=== PATIENT | female | born 1990 | race Caucasian/White ===

== ENCOUNTER 2018-02-28 12:59 | Inpatient (IN) | payer MEDICARE, MEDICAID ==
--- NOTE | 2018-02-28 13:37 | ED ---
Psych HPI - General Chief Complaint: Psychiatric Symptoms Stated Complaint: mental health Time Seen by Provider: 02/28/18 13:10 Source: patient, RN notes reviewed Mode of arrival: ambulatory Limitations: no limitations - History of Present Illness Initial Comments: This a 27-year-old female presents emergency Department chief complaint of depression, suicidal ideation. Patient states that she's had building depression last 3 days. She's had thoughts of overdosing but states that she has not attempted to harm himself. She states that she does have history of drug abuse she claims she has been clean for last 3 months. Patient states she has not use any alcohol and Reglan basis in a while. Patient denies any physical complaints. Patient states she does take multiple medications for depression states that has not been helping child tried telling this to her psychiatrist. - Related Data Allergies Allergy/AdvReac Type Severity Reaction Status Date / Time aspirin Allergy Rash/Hives Verified 02/28/18 13:05 clarithromycin [From Biaxin] Allergy Rash/Hives Verified 02/28/18 13:05 Review of Systems ROS Statement: Those systems with pertinent positive or pertinent negative responses have been documented in the HPI. ROS Other: All systems not noted in ROS Statement are negative. Past Medical History Past Medical History: COPD, Diabetes Mellitus History of Any Multi-Drug Resistant Organisms: None Reported Past Surgical History: No Surgical Hx Reported Past Psychological History: Anxiety, Bipolar, Depression, Schizophrenia Smoking Status: Current every day smoker Past Alcohol Use History: Occasional Past Drug Use History: Marijuana, Prescription Drug Abuse General Exam Limitations: no limitations General appearance: alert, in no apparent distress Head exam: Present: atraumatic, normocephalic, normal inspection Eye exam: Present: normal appearance, PERRL, EOMI. Absent: scleral icterus, conjunctival injection, periorbital swelling ENT exam: Present: normal exam, mucous membranes moist Neck exam: Present: normal inspection, full ROM. Absent: tenderness, meningismus, lymphadenopathy Respiratory exam: Present: normal lung sounds bilaterally. Absent: respiratory distress, wheezes, rales, rhonchi, stridor Cardiovascular Exam: Present: regular rate, normal rhythm, normal heart sounds. Absent: systolic murmur, diastolic murmur, rubs, gallop, clicks GI/Abdominal exam: Present: soft, normal bowel sounds. Absent: distended, tenderness, guarding, rebound, rigid Psychiatric exam: Present: depressed Skin exam: Present: warm, dry, intact, normal color. Absent: rash Course Vital Signs 02/28/18 13:01 Temperature 99.0 F Pulse Rate 85 Respiratory 18 Rate Blood Pressure 150/74 O2 Sat by Pulse 98 Oximetry Medical Decision Making - Lab Data Lab Results 02/28/18 Range/Units 13:24 Urine Opiates Screen Not Detected (NotDetected) Ur Oxycodone Screen Not Detected (NotDetected) Urine Methadone Screen Not Detected (NotDetected) Ur Propoxyphene Screen Not Detected (NotDetected) Ur Barbiturates Screen Not Detected (NotDetected) U Tricyclic Antidepress Detected H (NotDetected) Ur Phencyclidine Scrn Not Detected (NotDetected) Ur Amphetamines Screen Not Detected (NotDetected) U Methamphetamines Scrn Not Detected (NotDetected) U Benzodiazepines Scrn Not Detected (NotDetected) Urine Cocaine Screen Not Detected (NotDetected) U Marijuana (THC) Screen Not Detected (NotDetected) Disposition Clinical Impression: Depression, Suicidal ideation Disposition: ADMITTED IP TO THIS [facility] Condition: Stable Referrals: Dyllan Avalos DO [Primary Care Provider] - 1-2 days
[2018-02-28 13:50] LABS: Amphetamine Screen,Urine Not Detected (NotDetected); Barbiturate Screen,Urine Not Detected (NotDetected); Benzodiazepines Screen,Urine Not Detected (NotDetected); Cocaine Screen,Urine Not Detected (NotDetected); Methadone Screen, Urine Not Detected (NotDetected); Opiate Screen,Urine Not Detected (NotDetected); Oxycodone Screen, Urine Not Detected (NotDetected); Phencyclidine Screen,Urine Not Detected (NotDetected); Tricyclic Antidepressant,Urine Detected (NotDetected); Urn Cannabinoid Scrn Not Detected (NotDetected)
[2018-02-28] MEDS ORDERED: ACETAMINOPHEN TAB 325 MG TAB PO PRN (15:53)
[2018-02-28] MEDS ORDERED: MAGNESIUM HYDROXIDE 2,400 MG/10 ML CUP PO PRN (15:53)
[2018-02-28] MEDS: NICOTINE 14MG/24HR PATCH TRANSDERM SCH (16:13)
[2018-02-28 17:49] LABS: Glucose,Whole Blood 99 mg/dL (75-99)
[2018-02-28] MEDS: metFORMIN 500 MG TAB PO SCH (18:08)
[2018-02-28 20:12] LABS: Glucose,Whole Blood 210 mg/dL (75-99)
[2018-02-28 20:53] VITALS: BMI 47.0
[2018-02-28] MEDS ORDERED: LURASIDONE 80 MG TAB PO SCH (21:00)
[2018-02-28] MEDS: LORazepam 1 MG TAB PO PRN (21:37)
[2018-03-01 06:30] LABS: Glucose,Whole Blood 93 mg/dL (75-99)
[2018-03-01] MEDS ORDERED: ALBUTEROL NEBULIZED 2.5 MG/3 ML INHALATION PRN (06:49)
[2018-03-01] MEDS ORDERED: CALCIUM CARBONATE 500 MG CHEWABLE PO PRN (06:49)
--- NOTE | 2018-03-01 06:52 | P.HPMEDMHU ---
History of Present Illness H&P Date: 03/01/18 Chief Complaint: Suicidal ideation Ms. Marshall is a 27-year-old female with a past medical history of diabetes, dyslipidemia, GERD, and asthma with component of COPD who presented to the ER with complaint of suicidal ideation. She has subsequently been admitted to the mental health unit. We have been asked to consult for medical management. Patient seen and examined at bedside with nursing present. She complains that she was vomiting for 2 days after eating some fried zucchini. This is since resolved. She is not having any abdominal pain or discomfort at this point in time. She is not having any diarrhea or constipation. She reports increasing anxiety and depression recently. She does have a history of diabetes. She checks her blood sugar at home sometimes. She takes metformin 750 mg daily. She does not believe this is the XL. She is unsure when her last hemoglobin A1c was but knows that her triglycerides were high. She denies any recent cough , cold, fever, flu, shortness of breath, or chest pain. She states her wheezes chronic and her this point in time her asthma is well-controlled. She does have some insomnia which is near baseline. Review of Systems Pertinent positives and negatives as discussed in HPI, a complete review of systems was performed and all other systems are negative. Past Medical History Past Medical History: COPD, Diabetes Mellitus Additional Past Medical History / Comment(s): Dyslipidemia, GERD History of Any Multi-Drug Resistant Organisms: None Reported Past Surgical History: No Surgical Hx Reported Past Psychological History: Anxiety, Bipolar, Depression, Schizophrenia Smoking Status: Current every day smoker Past Alcohol Use History: Occasional Past Drug Use History: Marijuana, Prescription Drug Abuse Additional Drug Use History / Comment(s): History of illicit drug use, no history of injectable drug use, not using currently. Additional History: Lives with her fianc, on disability - Past Family History Mother Additional Family Medical History / Comment(s): Hypertension, hypothyroidism, heart disease Father Additional Family Medical History / Comment(s): Diabetes, history of open-heart 2, coronary artery disease Medications and Allergies Home Medications Medication Instructions Recorded Confirmed Type Escitalopram [Lexapro] 20 mg PO DAILY 02/28/18 03/01/18 History LORazepam [Ativan] 1 mg PO BID 02/28/18 03/01/18 History Lurasidone HCl [Latuda] 120 mg PO HS 02/28/18 03/01/18 History Pantoprazole Sodium [Protonix] 20 mg PO DAILY 02/28/18 03/01/18 History QUEtiapine [SEROquel] 400 mg PO HS 02/28/18 03/01/18 History metFORMIN HCL [Glucophage Xr] 750 mg PO PC-SUPPER 02/28/18 03/01/18 History Allergies Allergy/AdvReac Type Severity Reaction Status Date / Time aspirin Allergy Rash/Hives Verified 03/01/18 05:28 clarithromycin [From Biaxin] Allergy Rash/Hives Verified 03/01/18 05:28 Physical Exam Osteopathic Statement: *. No significant issues noted on an osteopathic structural exam other than those noted in the History and Physical/Consult. Vitals: Vital Signs Temp Pulse Pulse Pulse Resp BP BP 03/01/18 04:04 97.7 F 88 16 140/69 02/28/18 21:37 99 135/82 02/28/18 20:37 98.2 F 96 20 02/28/18 14:54 98.3 F 89 18 148/80 02/28/18 13:01 99.0 F 85 18 150/74 BP Pulse Ox 03/01/18 04:04 02/28/18 21:37 02/28/18 20:37 137/88 96 02/28/18 14:54 99 02/28/18 13:01 98 Intake and Output 02/28/18 02/28/18 03/01/18 14:59 22:59 06:59 Other: Weight 122.924 kg 124.2 kg General: non toxic, no distress, appears at stated age, B6 Derm: no unusual rashes/lesions no unusual ecchymoses, warm, dry, multiple tattoos over bilateral arms Head: atraumatic, normocephalic, symmetric Eyes: EOMI, no lid lag, anicteric sclera, pupils equal round reactive to light ENT: Nose and ears atraumatic, no thrush, no pharyngeal erythema Neck: No thyromegaly, no cervical lymphadenopathy, trachea midline, supple Mouth: no lip lesion, mucus membranes moist Cardiovascular: S1S2 reg, no murmur, positive posterior tibial pulse bilateral, no edema, capillary refill less than 2 seconds Lungs: Expiratory wheeze bilateral bases, no rhonchi, no rales , no accessory muscle use Abdominal: soft, nontender to palpation, no guarding, no appreciable organomegaly, normal bowel sounds Ext: no gross muscle atrophy, muscle strength 5 out of 5 in all 4 extremities grossly, no contractures, Neuro: CN II-XI grossly intact, light touch intact all 4 extremities, finger to nose within normal limits, Psych: Alert, oriented, appropriate affect Cranial Nerve Examination - Cranial Nerves Cranial Nerve II- Optic: Intact Cranial Nerve III- Oculomotor: Intact Cranial Nerve IV- Trochlear: Intact Cranial Nerve V- Trigeminal: Intact Cranial Nerve - Abducens: Intact Cranial Nerve VII- Facial: Intact Cranial Nerve VIII- Auditory: Intact Cranial Nerve IX- Glossopharyngeal: Intact Cranial Nerve X- Vagus: Intact Cranial Nerve XI- Accessory: Intact Cranial Nerve XII- Hypoglossal: Intact Results Labs: Abnormal Lab Results - Last 24 Hours (Table) 02/28/18 02/28/18 Range/Units 13:24 20:05 POC Glucose (mg/dL) 210 H (75-99) mg/dL U Tricyclic Antidepress Detected H (NotDetected) Thrombosis Risk Factor Assmnt - DVT/VTE Prophylaxis DVT/VTE Prophylaxis: Low risk, early ambulation encouraged - Choose All That Apply Each Factor Represents 1 point: Obesity (BMI >25) Thrombosis Risk Factor Assessment Total Risk Factor Score: 1 Thrombosis Risk Factor Assessment Level: Low Risk Assessment and Plan Assessment: Diabetes mellitus type 2 -Patient not currently on insulin and will decrease what sugar checks to twice daily -Check hemoglobin A1c -Follow up with PCP on discharge Dyslipidemia -Patient reports elevated triglycerides which can occur with uncontrolled diabetes. Will await A1c and lipid levels to determine need a course of action. GERD -Add as needed Tums -Continue PPI Asthma and COPD without exacerbation -Patient does take inhalers daily and will need to verify them on her med list and get them restarted -When necessary bronchodilators Depression -Your psych management Thank you for allowing us to participate in the care of this patient. We will follow peripherally. Do not hesitate to contact us with questions. Someone can be reached from the [facility] hospitalist group at all hours of the day at [phone].
[2018-03-01] MEDS: PANTOPRAZOLE 40 MG TABLET PO SCH (08:20)
[2018-03-01] MEDS: metFORMIN 500 MG TAB PO SCH ×2 (08:21→17:05)
[2018-03-01] MEDS: NICOTINE 14MG/24HR PATCH TRANSDERM SCH ×2 (08:21→17:05)
[2018-03-01] MEDS ORDERED: ESCITALOPRAM 20 MG TAB PO SCH (09:00)
[2018-03-01] MEDS: OXcarbazepine 150 MG TAB PO SCH ×2 (09:11→20:26)
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
[2018-03-01 16:51] LABS: Appearance,Urine Clear (Clear); Bilirubin,Urine Negative (Negative); Blood,Urine Negative (Negative); Color,Urine Yellow; Glucose,Urine (UA) Negative (Negative); Ketones,Urine Negative (Negative); Leukocyte Esterase,Urine Negative (Negative); Nitrite,Urine Negative (Negative); PH, Urine 5.5 (5.0-8.0); Protein,Urine Negative (Negative); Specific Gravity,Urine 1.018 (1.001-1.035); Urobilinogen,Urine <2.0 mg/dL (<2.0)
[2018-03-01 17:00] LABS: Glucose,Whole Blood 102 mg/dL (75-99)
[2018-03-01] MEDS: LURASIDONE 40 MG TAB PO SCH (17:06)
[2018-03-01] MEDS: LORazepam 1 MG TAB PO PRN (18:38)
[2018-03-01] MEDS: SYMBICORT 160-4.5 MCG INHALER INHALATION SCH (20:40)
[2018-03-01] MEDS ORDERED: MELATONIN 5 MG TABLET PO SCH (21:00)
[2018-03-02 06:06] LABS: Glucose,Whole Blood 88 mg/dL (75-99)
[2018-03-02 06:59] LABS: Basophils # (A) 0.1 k/uL (0-0.2); Basophils % (A) 1 %; Eosinophils # (A) 0.2 k/uL (0-0.7); Eosinophils % (A) 2 %; HCT 46.8 % (34.0-46.0); Lymphocytes # (A) 3.2 k/uL (1.0-4.8); Lymphocytes % (A) 36 %; MCHC 32.1 g/dL (31.0-37.0); MCV 90.5 fL (80.0-100.0); Mean Platelet Volume 6.9; Monocytes # (A) 0.3 k/uL (0-1.0); Monocytes % (A) 4 %; Neutrophils # (A) 5.1 k/uL (1.3-7.7); Neutrophils % (A) 57 %; Platelet Count 230 k/uL (150-450); RBC 5.17 m/uL (3.80-5.40); RDW 13.6 % (11.5-15.5)
[2018-03-02 07:18] LABS: ALT 28 U/L (9-52); AST 19 U/L (14-36); Albumin 3.5 g/dL (3.5-5.0); Alkaline Phosphatase 66 U/L (38-126); Anion Gap 7 mmol/L; Blood Urea Nitrogen 15 mg/dL (7-17); Calcium 8.6 mg/dL (8.4-10.2); Carbon Dioxide 24 mmol/L (22-30); Chloride 107 mmol/L (98-107); Cholesterol 172 mg/dL (<200); Glucose 86 mg/dL (74-99); HDL Cholesterol 52 mg/dL (40-60); LDL Cholesterol,Calculated 95 mg/dL (0-99); Potassium 4.2 mmol/L (3.5-5.1); Sodium 138 mmol/L (137-145); Total Bilirubin 0.5 mg/dL (0.2-1.3); Total Protein 6.3 g/dL (6.3-8.2); Triglycerides 126 mg/dL (<150)
[2018-03-02] MEDS: SYMBICORT 160-4.5 MCG INHALER INHALATION SCH ×2 (08:45→20:17)
[2018-03-02] MEDS: ESCITALOPRAM 10 MG TAB PO SCH (09:30)
[2018-03-02] MEDS: metFORMIN 500 MG TAB PO SCH ×2 (09:30→17:49)
[2018-03-02] MEDS: PANTOPRAZOLE 40 MG TABLET PO SCH (09:30)
[2018-03-02] MEDS: OXcarbazepine 150 MG TAB PO SCH ×2 (09:30→21:05)
[2018-03-02] MEDS: NICOTINE 14MG/24HR PATCH TRANSDERM SCH (09:30)
--- NOTE | 2018-03-02 11:07 | P.PN ---
Progress Note - Text Interval history: The patient is found at the phone she follows me to an interview room. She was admitted for having suicidal thoughts. She felt her mood was labile. She was seen by yesterday and was continued on Lexapro at a lower dose continued on the to do and Trileptal was started 150 mg twice daily. The patient has no questions or concerns about those medications. She states that she did not sleep well last night and the melatonin was ineffective. She states that she has tried melatonin as an outpatient and it was not effective even with sustained use. Mental status exam: The patient is an obese female appearing her stated age. She is wearing eyeglasses. She has a disheveled appearance she is dressed in her own clothing. She reports her mood is improved today although she still has some fluctuation of mood. She describes concern over lack of sleep. She is reporting no suicidal or homicidal ideation and she feels safe in the hospital. She reports a history of auditory hallucinations but states none of those are occurring now. She demonstrates no abnormal involuntary movements. She demonstrates no verbal or physical aggressiveness. The patient is somewhat repetitive in her line of questioning. It appears that she may have some intellectual disability. Plan: The patient will continue on her current medication. We will discontinue the melatonin and trial Vistaril at bedtime. We will monitor her for safety and encourage her full participation in the milieu. Vital signs reviewed.
[2018-03-02] MEDS: MAG HYDROX/AL HYDROX/SIMETH 30 ML CUP PO PRN (12:34)
[2018-03-02 12:45] LABS: Hemoglobin A1C 4.9 % (4.0-6.0)
[2018-03-02] MEDS: LURASIDONE 40 MG TAB PO SCH (17:49)
[2018-03-02 20:13] LABS: Glucose,Whole Blood 104 mg/dL (75-99)
[2018-03-02] MEDS: hydrOXYzine PAMOATE 25 MG CAP PO SCH (21:05)
[2018-03-02] MEDS: LORazepam 1 MG TAB PO PRN (21:07)
[2018-03-03 06:07] LABS: Glucose,Whole Blood 90 mg/dL (75-99)
[2018-03-03] MEDS: PANTOPRAZOLE 40 MG TABLET PO SCH (08:03)
[2018-03-03] MEDS: metFORMIN 500 MG TAB PO SCH ×2 (08:03→18:09)
[2018-03-03] MEDS: NICOTINE 14MG/24HR PATCH TRANSDERM SCH (08:03)
[2018-03-03] MEDS: ESCITALOPRAM 10 MG TAB PO SCH (08:04)
[2018-03-03] MEDS: OXcarbazepine 150 MG TAB PO SCH ×2 (08:04→20:27)
--- NOTE | 2018-03-03 08:57 | P.PN ---
Progress Note - Text Interval history: The patient is found at the front office spec she follows me to an interview room. She indicates that the Vistaril was helpful for sleep. She has been attending groups. She feels that her mood is stabilizing. She has no questions or complaints regarding the Trileptal or her other psychotropics. Mental status exam: The patient is an overweight female appearing her stated age. She is dressed in her own clothing she is wearing her eyeglasses. Eye contact is appropriate. She has spontaneous speech that is nonpressured. She demonstrates no tangential thinking loose associations or flight of ideas. She feels her mood is improving. She feels safe here in the hospital. She is reporting no acute suicidal or homicidal ideation intent or plan. She is reporting no auditory or visual hallucinations or any specific delusions. She demonstrates no verbal or physical aggressiveness no abnormal involuntary movements. Insight and judgment improving. She remains oriented to person place and date. Plan: The patient will continue on her current medications. She appears to be clinically stabilizing and we will anticipate a discharge in the next 1-2 days. We will monitor her for safety and encourage her participation in the milieu. Vital signs reviewed.
[2018-03-03] MEDS: SYMBICORT 160-4.5 MCG INHALER INHALATION SCH ×2 (11:24→21:09)
[2018-03-03 17:31] LABS: Glucose,Whole Blood 92 mg/dL (75-99)
[2018-03-03] MEDS: LURASIDONE 40 MG TAB PO SCH (18:09)
[2018-03-03] MEDS: hydrOXYzine PAMOATE 25 MG CAP PO SCH (20:27)
[2018-03-03] MEDS: LORazepam 1 MG TAB PO PRN (22:26)
[2018-03-04] MEDS: MAG HYDROX/AL HYDROX/SIMETH 30 ML CUP PO PRN (04:35)
[2018-03-04 06:53] LABS: Glucose,Whole Blood 103 mg/dL (75-99)
[2018-03-04 07:09] VITALS: BP 150/96; PULSE 102; RESP 18; TEMP 98.2
[2018-03-04] MEDS: metFORMIN 500 MG TAB PO SCH (07:57)
[2018-03-04] MEDS: PANTOPRAZOLE 40 MG TABLET PO SCH (07:57)
[2018-03-04] MEDS: NICOTINE 14MG/24HR PATCH TRANSDERM SCH (07:57)
[2018-03-04] MEDS: OXcarbazepine 150 MG TAB PO SCH (07:58)
[2018-03-04] MEDS: ESCITALOPRAM 10 MG TAB PO SCH (07:58)
[2018-03-04] MEDS: SYMBICORT 160-4.5 MCG INHALER INHALATION SCH (09:28)
--- NOTE | 2018-03-04 09:39 | P.DS ---
Providers Date of admission: 02/28/18 14:37 Expected date of discharge: 03/04/18 Attending physician: Jaron Pascual Consults: 02/28/18 16:26 Consult Physician Routine Consulting Provider: Hernandez Diaz Consult Reason/Comments: H & P and medical care Do you want consulting provider notified?: Yes Primary care physician: Dyllan Avalos - Discharge Diagnosis(es) (1) Bipolar 2 disorder, major depressive episode Current Visit: Yes Status: Acute Priority: High Hospital Course: Brief summary of admission note: This patient is a 28-year-old female who was brought to the hospital by family as she reported having suicidal ideation that was worsening over the last 3 days. She reported feeling more depressed because of her grandfathers health issues. She described impaired sleep, hopelessness thinking low energy with low motivation. She felt that suicidal thoughts were worsening. For full detail please refer to the psychiatric evaluation dated 03/01/2018. Summary of hospital course: The patient was admitted to the mental health unit voluntarily. Her presenting symptoms were assessed treatment options were discussed. She was continued on Latuda 120 mg, Lexapro at 10 mg daily, Trileptal was initiated. For sleep we decided to trial melatonin which she found ineffective then later Vistaril tried which she found beneficial. She participated in groups. She demonstrated no agitated behavior. She described a progressive improvement of symptoms while here. She will participate in a support meeting with her fianc today prior to discharge. She plans on continuing to work with her outpatient psychiatrist was [facility]. Mental status exam: The patient is an overweight female appearing her stated age. She presents with adequate hygiene grooming. She is wearing eyeglasses. She is dressed in her own clothing. She seated calmly. She demonstrates no verbal or physical aggressiveness. She indicates that her mood is good. Affect is congruent and appears euthymic and she is able to demonstrate an appropriate range of affect. She is reporting no suicidal or homicidal ideation intent or plan. She is reporting no auditory or visual hallucinations or any specific delusions. There is no observed evidence of psychosis. No evidence of abnormal involuntary movements. She is oriented to person place and date. She demonstrates no tangential thinking loose associations or flight of ideas and there is no observed evidence of hypomania or kathleen. Impressions 1. Bipolar 2 disorder most recent depressed, rule out intellectual disability Plan: The patient will be discharged from the mental health unit today to return home. She will participate in a support meeting involving her fianc prior to discharge. The patient will continue on Latuda 120 mg daily with food , Trileptal 150 mg twice daily, Vistaril 25 mg at bedtime, Lexapro 10 mg daily. There is no imminent safety risk she is appropriate for transition back to outpatient care. She is instructed to return to the hospital with any acute safety concerns. Patient Condition at Discharge: Stable Plan - Discharge Summary Discharge Rx Participant: No New Discharge Prescriptions: New Calcium Carbonate [Tums] 500 mg PO TID PRN chew PRN Reason: Heartburn Escitalopram [Lexapro] 10 mg PO DAILY #30 tab hydrOXYzine PAMOATE [Vistaril] 25 mg PO HS #30 cap Nicotine 14Mg/24Hr Patch [Habitrol] 1 patch TRANSDERM DAILY #10 patch OXcarbazepine [Trileptal] 150 mg PO BID #60 tab Continue metFORMIN HCL [Glucophage Xr] 750 mg PO PC-SUPPER LORazepam [Ativan] 1 mg PO BID Pantoprazole Sodium [Protonix] 20 mg PO DAILY Lurasidone HCl [Latuda] 120 mg PO HS #30 tablet Discontinued QUEtiapine [SEROquel] 400 mg PO HS Escitalopram [Lexapro] 20 mg PO DAILY Discharge Medication List LORazepam [Ativan] 1 mg PO BID 02/28/18 [History] Pantoprazole Sodium [Protonix] 20 mg PO DAILY 02/28/18 [History] metFORMIN HCL [Glucophage Xr] 750 mg PO PC-SUPPER 02/28/18 [History] Calcium Carbonate [Tums] 500 mg PO TID PRN chew 03/04/18 [Rx] Escitalopram [Lexapro] 10 mg PO DAILY #30 tab 03/04/18 [Rx] Lurasidone HCl [Latuda] 120 mg PO HS #30 tablet 03/04/18 [Rx] Nicotine 14Mg/24Hr Patch [Habitrol] 1 patch TRANSDERM DAILY #10 patch 03/04/18 [ Rx] OXcarbazepine [Trileptal] 150 mg PO BID #60 tab 03/04/18 [Rx] hydrOXYzine PAMOATE [Vistaril] 25 mg PO HS #30 cap 03/04/18 [Rx] Follow up Appointment(s)/Referral(s): Dyllan Avalos DO [Primary Care Provider] - 1-2 days
== END 2018-03-04 11:29 | disposition home or self-care (01) | DRG 885 ==
LOC: EC 12:59 → 3MHU 14:37
PROVIDERS: ADMIT Psychiatry & Neurology Psychiatry; ATTEND Psychiatry & Neurology Psychiatry
DX: F31.81 Bipolar II disorder (principal); Z68.42 Body mass index [BMI] 45.0-49.9, adult; R45.851 Suicidal ideations; E11.9 Type 2 diabetes mellitus without complications; E66.3 Overweight; F17.200 Nicotine dependence, unspecified, uncomplicated; F20.9 Schizophrenia, unspecified; J44.9 Chronic obstructive pulmonary disease, unspecified; Z79.899 Other long term (current) drug therapy; Z81.8 Family history of other mental and behavioral disorders; Z81.1 Family history of alcohol abuse and dependence; Z83.3 Family history of diabetes mellitus; Z82.49 Family history of ischemic heart disease and other diseases of the circulatory system; Z91.410 Personal history of adult physical and sexual abuse; F79 Unspecified intellectual disabilities; Z79.84 Long term (current) use of oral hypoglycemic drugs
CPT/HCPCS: 80053; 80061; 80306; 81003; 82075; 83036; 84443; 85025; 94640; 99285